=== PATIENT | male | born 1995 | race Caucasian/White ===

== ENCOUNTER 2024-02-14 18:10 | Emergency (ER) | payer SELFPAY ==
[~2024-02-14] VITALS: Ht 165.1 cm; Wt 63.5 kg
[2024-02-14 18:10] VITALS: BP_SYST 121; PULSE 87; RESP 18; TEMP 97.8; O2SAT 100
[2024-02-14 18:58] VITALS: BP_SYST 121; PULSE 87; RESP 18; TEMP 97.8; O2SAT 100
== END 2024-02-14 18:58 ==
LOC: SED 18:10
DX: Z02.83 Encounter for blood-alcohol and blood-drug test (principal)
CPT/HCPCS: 99283